=== PATIENT | female | born 1970 | race Caucasian/White ===

== ENCOUNTER 2022-11-16 12:36 | Observation (INO) | payer OTHER ==
--- OUTSIDE RECORDS SUMMARY | 2022-11-16 12:39 | XMS REPORT | Clinical Summary ---
:1970 Author Organization [facility] MD [facility] Address [address] [place] [id number] Care Team Providers Name Role Phone Unavailable Primary Care Provider Unavailable Allergies Not on File Medications Not on file Active Problems Not on file Encounters Date Type Specialty Care Team Description 04/21/2022 Ancillary Procedure Radiology Sharon Huitron MD Cancer 04/21/2022 Ancillary Procedure Radiology Sharon Huitron MD Cancer 04/21/2022 Ancillary Procedure Radiology Sharon Huitron MD Cancer 04/21/2022 Ancillary Procedure Radiology Sharon Huitron MD Cancer after 11/16/2021 Social History Tobacco Use Types Packs/Day Years Used Date Smoking Tobacco: Never Assessed Sex Assigned at Date Recorded Not on file Last Filed Vital Signs Not on file Plan of Treatment Not on file Results Not on fileafter 11/16/2021
--- OUTSIDE RECORDS SUMMARY | 2022-11-16 12:40 | XMS REPORT | Continuity of Care Document ---
:1970 Author Organization [facility] t Address [address] [place] [address] Care Team Providers Name Role Phone Aleta Fajardo MD Primary Care Physician Aleta Fajardo MD Attending Clinician Mj Huitron MD Attending Clinician MJ HUITRON Attending Clinician Unavailable Payers Payer Name Policy Type Policy Number Effective Date Expiration Date S ource Problems Condition Condition Condition Status Onset Resolution Last Treating Co mments Source Name Details Category Date Date Treatment Clinician Date Depression Depression Disease Recurre 2017-07 [facility] with with nce 0- st anxiety anxiety 00:00: Hospita 00 l Chronic Chronic Disease Active Overview: Meth victor hugo left-sided left-sided 12-[address] low back low back 00:00: g of this Hos amanda pain pain 00 note l without without might be sciatica sciatica different from the original. 12/09/2017 x ray ; Minimal Multileve l degenerat opal changes , Dizziness Dizziness Disease Active 2015-07 Overview: [facility] 2-[address] 00:00: g of this Hospita 00 note l might be different from the original. Fu w ENt Suzi' Suzi' Disease Recurre 2015-07 Ygvie w: Methodi s s nce 2-[address] thyroiditi thyroiditi 00:00: g of this Hospita s s 00 note l might be different from the original. 05/13 TFT wnl ,BX was benign Nevus of Nevus of Disease Active 2015-07 Overview: Me thodi multiple multiple 2-[address] sites sites 00:00: g of this Hospita 00 note l might be different from the original. Fu w derm Vitamin D Vitamin D Disease Active Overview: [facility] deficiency deficiency 01-29 [facility] 00:00: g of this Hospita 00 note l might be different from the original. 02/06 V d 27 07/09 V d 25 04/10 V d 42 04/11 v d 35 08/16 OSH V D 40 History of History of Disease Active Overview : [facility] skin skin 11-26 [facility] cancer cancer 00:00: g of this Hospita 00 note l might be different from the original. BCC Upper chest Routine Routine Disease Active Overview: Meth victor hugo gynecologi gynecologi 11-26 [facility] raji raji 00:00: g of this Hospita examinatio examinatio 00 note l n n might be different from the original. WW w obgyn HLD HLD Disease Recurre Overview: Metho di (hyperlipi (hyperlipi nce 11-26 [facility] demia) demia) 00:00: g of this Hospita 00 note l might be different from the original. 09/15 ASCVD 1.4 % 10/14 CACS Zero Insomnia Insomnia Disease Recurre Meth victor hugo nce st Hospita l Allergies, Adverse Reactions, Alerts Allergy Allergy Status Severity Reaction(s) Onset Inactive Treating Comm ents Source Name Type Date Date Clinician Sulfa Propensi Active [facility] (Sulfona ty to 11-26 mide adverse 00:00: Hospita Antibiot reaction 00 l ics) s to drug Family History Family Member Diagnosis Comments Start Date Stop Date Source Natural brother Hypertension [facility] Natural brother Diabetes [facility] Natural father Diabetes [facility] Maternal grandfather Heart disease [facility]aternal grandmother Cancer [facility] Natural mother Cancer [facility] Paternal grandfather Cancer [facility] Paternal grandmother Cancer [facility] Social History Social Habit Start Date Stop Date Quantity Comments Source Gender identity [facility] Sexual orientation [facility] History of Social 2022-09-14 2022-09-14 [facility] function 00:00:00 00:00:00 Hospital Alcohol intake 2022-09-14 2022-09-14 Current drinker [facility] 00:00:00 00:00:00 of alcohol Hospital (finding) Tobacco use and 2022-09-09 2022-09-09 Smokeless [facility] exposure 00:00:00 00:00:00 tobacco non-user Hospital Alcohol Comment 2015-11-27 2015-11-27 social [facility] 00:00:00 00:00:00 Hospital Sex Assigned At [birth year] [facility] 00:00:00 00:00:00 Hospital Smoking Status Start Date Stop Date Source Never smoked tobacco [facility] Medications Ordered Filled Start Stop Current Ordering Indication Dosage Frequency Signature Comments Components Source Medication Medication Date Date Medication? Clinician (SIG) Name Name multivitami 2022- No 1{tbl} QD Take 1 M ethodi n with 09-[address] [facility] 14:19: 00:00 mouth Hospita tablet 29 :00 daily. l CHOLECALCIF Yes Take by Met hodakin YUKO, 09-[address] VITAMIN D3, 14:08: TAB DAILY H ospita (VITAMIN D3 55 l ORAL) NON Yes ProbioticP [facility] FORMULARY 09-[address] 14:08: fiberB-12 Hospita 55 l traZODone 2022- No [id number] 50mg QD Take 1 [facility] (DESYREL) 09-14 tablet (50 st 50 MG 00:00: 00:00 mg total) Hospit a tablet 00 :00 by mouth l nightly. Immunizations Ordered Immunization Filled Immunization Date Status Commen ts Source Name Name FLUCELVAX QUAD PF 2021-09-[address] 00:00:00 Hospital FLUCELVAX QUAD PF 2020-05-[address] 00:00:00 Hospital FLUBLOK QUAD PF 2019-04-25 Completed [facility] 00:00:00 Hospital FLUZONE QUAD PF 2018-04-25 Completed [facility] 00:00:00 Hospital FLUZONE QUAD PF 2017-04-20 Completed [facility] 00:00:00 Hospital Tdap 2017-04-20 Completed [facility] 00:00:00 Hospital FLUZONE QUAD PF 2016-06-25 Completed [facility] 00:00:00 Hospital Vital Signs Vital Name Observation Time Observation Value Comments Source Systolic blood 2022-09-09 20:07:00 118 mm[Hg] Method [facility] pressure Diastolic blood 2022-09-09 20:07:00 82 mm[Hg] [facility] pressure Heart rate 2022-09-09 20:07:00 72 /min [facility] Body temperature 2022-09-09 20:07:00 36.67 Shania [facility] Respiratory rate 2022-09-09 20:07:00 20 /min [facility] Body height 2022-09-09 20:07:00 170.2 cm [facility] Body weight 2022-09-09 20:07:00 74.027 kg [facility] BMI 2022-09-09 20:07:00 25.56 kg/m2 [facility] Oxygen saturation in 2022-09-09 20:07:00 98 /min [facility] Arterial blood by Pulse oximetry Procedures Procedure Date / Time Performing Clinician Source Performed CT CARDIAC CALCIUM SCORE 2022-09-28 19:41:00 Aleta Fajardo [facility] MAMMO BREAST SCREEN 2022-09-28 19:38:09 [facility] TOMOSYNTHESIS BILATERAL Plan of Care Planned Activity Planned Date Details Comments Source Future Scheduled 2022-10-29 SHINGLES VACCINES (1 [facility] Test 22:52:55 of 2) [code = SHINGLES VACCINES (1 of 2)] Future Scheduled 2022-10-29 INFLUENZA VACCINE [facility] Test 22:52:55 [code = INFLUENZA VACCINE] Future Scheduled 2022-10-29 BREAST CANCER [facility] Test 22:52:55 SCREENING [code = BREAST CANCER SCREENING] Future Scheduled 2022-10-29 COLONOSCOPY SCREENING [facility] Test 22:52:55 [code = COLONOSCOPY SCREENING] Encounters Start End Encounter Admission Attending Care Care Encounter Source Date/Time Date/Time Type Type Clinicians Facility Department ID 2022-09-29 2022-09-29 [facility], 1.2.840.1 [id number] Method 08:11:15 23:59:00 Encounter Aleta [id number] 3.430.2.7 Hospit a .3.625911 l .8 2022-09-29 2022-09-29 [facility], 1.2.840.1 [id number] [facility] 08:10:54 08:10:54 Encounter Branka [id number] 3.430.2.7 Hospit a .3.838082 l .8 2022-09-29 2022-09-29 [facility], 1.2.840.1 [id number] Methodi 08:10:33 08:10:33 Encounter Branka [id number] 3.430.2.7 Hospit a .3.831360 l .8 2022-09-29 2022-09-29 [facility], 1.2.840.1 [id number] Methodi 08:10:15 08:10:15 Encounter Branka [id number] 3.430.2.7 Hospit a .3.138358 l .8 2022-09-29 2022-09-29 [facility], [facility] [id number] [place] 00:00:00 00:00:00 BRANKA [address] 2022-09-29 2022-09-29 Outpatient [facility], [facility] [id number] [place] 00:00:00 00:00:00 BRANKA [address] 2022-09-29 2022-09-29 [facility], [facility] [id number] [place] 00:00:00 00:00:00 BRANKA [address] 2022-09-29 2022-09-29 [facility], [facility] [id number] [place] 00:00:00 00:00:00 BRANKA [address] 2022-09-29 2022-09-29 [facility], 1.2.840.1 [id number] Methodi 00:00:00 00:00:00 Only Branka [id number] 3.430.2.7 Hospit a .3.166623 l .8 2022-09-28 2022-09-28 Outpatient [facility], [facility] [id number] [place] 00:00:00 00:00:00 BRANKA [address] 2022-09-28 2022-09-28 [facility] [id number] [place] 00:00:00 00:00:00 ALETA [address] 2022-09-09 2022-09-09 Office Scotty, 1.2.840.1 [id number] Methodi 14:00:00 14:36:50 Visit Aleta [id number] 2 3.430.2.7 Hospit a .3.742203 l .8 2022-09-09 2022-09-09 Outpatient [facility] [id number] [place] 00:00:00 00:00:[address] 2022-04-21 2022-04-21 Ancillary Tomy, 1.2.840.1 [id number] [facility] 23:45:00 23:50:00 Procedure Abenaa 61761.1.1 it y of 3.412.2.7 [place] .3.974924 MD Reddy [facility] 2022-04-21 2022-04-21 Ancillary Tomy, 1.2.840.1 [id number] [facility] 23:40:00 23:45:00 Procedure Abenaa 33957.1.1 it y of 3.412.2.7 [place] .3.975753 MD Reddy [facility] 2022-04-21 2022-04-21 Ancillary Tomy, 1.2.840.1 [id number] [facility] 23:35:00 23:40:00 Procedure Abenaa 87182.1.1 it y of 3.412.2.7 [place] .3.268472 MD Reddy [facility] 2022-04-21 2022-04-21 Ancillary Tomy, 1.2.840.1 [id number] Univers 23:30:00 23:35:00 Procedure Abenaa 30194.1.1 it y of 3.412.2.7 [place] .3.367712 MD Reddy [facility] 2022-04-21 2022-04-21 Outpatient ROSIO HUITRON MDA [facility] [id number] 23:27:50 23:27:50 ABENAA Horacio o n 2022-04-21 2022-04-21 Outpatient ROSIO HUITRON [facility] [id number] 23:27:48 23:27:48 MJ Leonard o n 2022-04-21 2022-04-21 Outpatient ROSIO HUITRON, MDA MDA [id number] 23:27:46 23:27:46 MJ cowan n 2022-04-21 2022-04-21 Outpatient ROSIO HUITRON MDA MDA [id number] 23:27:42 23:27:42 MJ cedillo 2021-09-14 2021-09-14 Outpatient [facility], [facility] [id number] [place] 00:00:00 00:00:00 ALETA [address] 2020-05-13 2020-05-13 Outpatient [facility] [id number] [place] 00:00:00 00:00:00 ALETA [address] 2020-05-06 2020-05-06 Outpatient [facility] [id number] [place] 00:00:00 00:00:[address] 2019-11-27 2019-11-27 Outpatient [facility] [id number] [place] 00:00:00 00:00:00 ALETA [address] Results This patient has no known results.
[2022-11-16 14:45] VITALS: BMI 25.9
[2022-11-16] MEDS ORDERED: ONDANSETRON 4 MG/2 ML VIAL IV PRN (14:47)
--- NOTE | 2022-11-16 15:00 | P.HP ---
Certification for Inpatient Patient admitted to: Inpatient With expected LOS: >2 Midnights Patient will require the following post-hospital care: None Practitioner: I am a practitioner with admitting privileges, knowledge of patient current condition, hospital course, and medical plan of care. Services: Services provided to patient in accordance with Admission requirements found in Title 42 Section 412.3 of the Code of Federal Regulations Patient History Date of Service: 11/16/22 Reason for admission: TIA History of Present Illness: Patient is a 52-year-old female with a past medical history significant for hypertension who presented from an outside ER facility for complaint of a suspected stroke. Patient reported that this morning she started having left arm pain and later left arm\facial numbness. Patient reported associated signs and symptoms of dizziness, near syncope, nausea, generalized weakness, unsteady gait and headache. Patient denies any other signs and symptoms. Symptoms are aggravated or relieved by nothing. Patient presented to an outside ER facility--[facility] where patient had a negative CTA head\neck and CT brain. Patient was given TNK infusion. Patient was referred to the hospital for higher level of care. Patient was accepted by neurology who recommended admission to the hospital. Allergies Sulfa (Sulfonamide Antibiotics) Allergy (Verified 11/16/22 15:09) Hives Home Medications: NK [No Home Meds] 11/16/22 - Past Medical/Surgical History -: HTN -: hysterectomy -: Tummy Tuck Surgery - Family History Father -: Heart disease, Hypertension, Diabetes, Other (see notes) (Hyperlipidemia) Mother -: Cancer - Social History Smoking Status: Former smoker Alcohol use: Yes CD- Drugs: Yes Caffeine use: No Place of Residence: Home Review of Systems General: Weakness Eyes: Unremarkable ENT: Unremarkable Respiratory: Unremarkable Cardiovascular: Unremarkable Gastrointestinal: Nausea Genitourinary: Unremarkable Musculoskeletal: Arm Pain Integumentary: Unremarkable Neurological: Weakness, Numbness, Other (Headache, near syncope, poor gait) Lymphatics: Unremarkable Physical Examination - Physical Exam General: Alert, In no apparent distress, Oriented x3, Cooperative HEENT: Atraumatic, PERRLA, Mucous membr. moist/pink, EOMI, Sclerae nonicteric Neck: Supple, 2+ carotid pulse no bruit, No LAD, Without JVD or thyroid abnormality Respiratory: Clear to auscultation bilaterally, Normal air movement Cardiovascular: No edema, Regular rate/rhythm, Normal S1 S2 Capillary refill: <2 Seconds Gastrointestinal: Normal bowel sounds, Soft and benign, No tenderness Musculoskeletal: No tenderness Integumentary: No rashes, No significant lesion Neurological: Normal speech, Normal strength at 5/5 x4 extr, Normal tone, Normal affect, Abnormal gait Lymphatics: No axilla or inguinal lymphadenopathy Assessment and Plan - Plan -- TIA. CTA head\neck, CT brain and MRI brain unremarkable for any acute findings. Neurologist on board. Status post TNK infusion. Continue folic acid and statin. Echocardiogram pending to assess to rule out possible cardiac cause of TIA. We will await further recommendation from neurologist. --Generalized weakness\abnormality of gait and mobility. Likely secondary to TIA. PT eval and treat. Patient reports improvement in weakness. Continue supportive care. --Hypertension. Patient reports medication noncompliance. We will allow for permissive hypertension. We will continue to monitor blood pressure levels. --CKD 2. Baseline functions unknown. Continue p.o. hydration. We will continue to monitor renal functions. --Cannabis use disorder. Patient reports use of cannabis. Patient counseled on drug cessation.. -- Headache. Tylenol as needed. --DVT prophylaxis with SCDs. Discharge Plan: Home Plan to discharge in: Greater than 2 days - Advance Directives Does patient have a Living Will: No Does patient have a Durable POA for Healthcare: No - Code Status/Comfort Care Code Status Assessed: Yes Physician Review: Patient Assessed, Agree with Above Assessment and Plan Critical Care: No
[2022-11-16] MEDS ORDERED: LORazepam 2 MG/ML VIAL IV ONE (15:20)
[2022-11-16 15:38] LABS: Hematocrit 41.7 % (36.0-45.0); Lymphocytes % 14.2 % (15.3-44.8); MCV 88.5 fL (80-100); MPV 7.4 fL (7.6-11.3); RBC Red Blood Cell Count 4.71 M/uL (3.86-4.86)
[2022-11-16 15:39] LABS: Protime INR 1.03
[2022-11-16 15:49] LABS: Albumin 3.9 g/dL (3.4-5.0); Bilirubin Total 0.4 mg/dL (0.2-1.0); Protein, Total 6.4 g/dL (6.4-8.2); Troponin High Sensitivity 6.5 pg/mL (<58.9)
[2022-11-16 16:06] LABS: Magnesium 2.2 mg/dL (1.6-2.4); NT PRO-BNP 51 pg/mL (<125)
[2022-11-16 16:10] LABS: Phosphorus > 9.0 mg/dL (2.5-4.9)
[2022-11-16] MEDS: FOLIC ACID 1 MG TABLET PO SCH (16:44)
--- NOTE | 2022-11-16 18:26 | RAD REPORT ---
EXAM DESCRIPTION: MRI - Brain Wo Cont - 11/16/2022 6:14 pm CLINICAL HISTORY: concern for CVA s/p TNK Headache, drowsiness, CVA symptomology COMPARISON: No comparisons TECHNIQUE: Multi-sequence, multiplanar MR imaging of the brain was performed without contrast. FINDINGS: No intracranial hemorrhage, hydrocephalus or extra-axial fluid collections. No edema or sh ift of midline structures. No findings to suspect brain mass. DWI is negative for acute CVA. Midline structures are normally formed. Mastoid air cells and paranasal sinuses are clear. IMPRESSION: No acute or concerning intracranial abnormalities.
[2022-11-16 18:41] VITALS: O2SAT 99
[2022-11-16] MEDS: ATORVASTATIN 40 MG TAB PO SCH (20:17)
[2022-11-16] MEDS ORDERED: ZOLPIDEM TARTRATE 5 MG TABLET PO PRN (20:29)
[2022-11-17 05:01] LABS: Absolute Lymphocytes (CBC) 1.6 K/uL (0.7-4.9); Hematocrit 39.7 % (36.0-45.0); Lymphocytes % 35.2 % (15.3-44.8); MCV 88.6 fL (80-100); MPV 7.2 fL (7.6-11.3); RBC Red Blood Cell Count 4.49 M/uL (3.86-4.86)
[2022-11-17 05:20] LABS: Albumin 3.3 g/dL (3.4-5.0); Bilirubin Total 0.4 mg/dL (0.2-1.0); Potassium 3.9 mEq/L (3.5-5.1); Protein, Total 6.1 g/dL (6.4-8.2)
[2022-11-17 06:50] VITALS: TEMP 97
[2022-11-17] MEDS: FOLIC ACID 1 MG TABLET PO SCH ×2 (07:11→16:31)
[2022-11-17] MEDS ORDERED: ENOXAPARIN 40 MG/0.4 ML SQ SCH (09:00)
[2022-11-17] MEDS ORDERED: POTASSIUM CL SA 10 MEQ TAB PO ONE (09:00)
--- NOTE | 2022-11-17 12:45 | ECHO ---
HEIGHT: 5 ft 7 in WEIGHT: 165 lb 8 oz DATE OF STUDY: 11/17/[address]: Marleny Hendrickson 2-DIMENSIONAL: YES M.MODE: YES DOPPLER: YES COLOR FLOW: YES TDS: NO PORTABLE: YES DEFINITY: NO BUBBLE STUDY: NO DIAGNOSIS: NUMBNESS CARDIAC HISTORY: CATHERIZATION: NO SURGERY: NO PROSTHETIC VALVE: NO PACEMAKER: NO MEASUREMENTS (cm) DIASTOLIC (NORMALS) SYSTOLIC (NORMALS) IVSd 0.9 (0.6-1.2) LA Diam 3.2 (1.9-4.0) LVEF 68% LVIDd 4.6 (3.5-5.7) LVIDs 2.9 (2.0-3.5) %FS 38% LVPWd 0.9 (0.6-1.2) Ao Diam 2.9 (2.0-3.7) 2 DIMENSIONAL ASSESSMENT: RIGHT ATRIUM: NORMAL LEFT ATRIUM: NORMAL RIGHT VENTRICLE: NORMAL LEFT VENTRICLE: NORMAL TRICUSPID VALVE: NORMAL MITRAL VALVE: NORMAL PULMONIC VALVE: NORMAL AORTIC VALVE: NORMAL PERICARDIAL EFFUSION: NONE AORTIC ROOT: NORMAL LEFT VENTRICULAR WALL MOTION: NORMAL. DOPPLER/COLOR FLOW: NORMAL. COMMENTS: 1. NORMAL 2D ECHO WITH DOPPLER 2. NO WALL MOTION ABNORMALITY 3. NO EFFUSION TECHNOLOGIST: SOLOMON ESQUEDA
--- NOTE | 2022-11-17 14:09 | RAD REPORT ---
EXAM DESCRIPTION: CT - Head Brain Wo Cont - 11/17/2022 2:02 pm CLINICAL HISTORY: R/O hemorrhage COMPARISON: Brain Wo Cont dated 11/16/2022 TECHNIQUE: All CT scans are performed using dose optimization technique as appropriate and may inclu de automated exposure control or mA/KV adjustment according to patient size. FINDINGS: No intracranial hemorrhage, hydrocephalus or extra-axial fluid collection.No areas of brai n edema or evidence of midline shift. The paranasal sinuses and mastoids are clear. The calvarium is intact. IMPRESSION: No acute intracranial abnormality.
--- NOTE | 2022-11-17 15:44 | P.DS ---
Admission Date: 11/16/22 Discharge Date: 11/17/22 Disposition: ROUTINE DISCHARGE Discharge Condition: GOOD Reason for Admission: TIA Consultations: 1. Neurology Hospital Course: DIAGNOSES: # Left-Sided Sensory Deficits - concern for Cerebrovascular Accident s/p Tenecteplase - resolved # Hypertension # Left Thyroid Nodule (2 cm) # Substance Use Disorder - Cannabis HOSPITAL COURSE: Ms. Elvi Couch is a 52 year old female with a past medical history significant for hypertension who was admitted to the [facility] from [facility] on 11/16/2022 for concern of a cerberovascular accident. She was admitted to the Medicine service. Her outside CT head reported reads, "no acute intracranial abnormality." Her outside CT head/neck angiogram report reads, "1. Normal head and neck CTA. 2. 2 cm left thyroid nodule for which follow-up ultrasound is recommended." She was given tenecteplase around 13:05 on 11/16/2022 at [facility] prior to arrival. Her MRI brain revealed, "no acute or concerning intracranial abnormalities." Her transthoracic echocardiogram revealed, "1. normal 2D echo with doppler 2. no wall motion abnormality 3. no effusion." Neurology was consulted and she was evaluated by Dr. Duarte. She was observed with serial NIHSS scores and did well. Her 24-hour post TNK CT head revealed, "no acute intracranial abnormality." Dr. Duarte has cleared her for discharge home with aspirin, atorvastatin, clopidogrel, and folic acid. Incidentally, she was noted to have a thyroid nodule. Her thyroid function tests were within normal limits. She was counseled on this finding and advised to schedule follow-up ultrasound with her PCP. She verbalized understanding and agreed to make this appointment. On 11/17/2022, She was seen on rounds and deemed medically stable for discharge. She was discharged with instructions to schedule follow-up appointments with her PCP (Dr. Fajardo) and with Neurology (Dr. Duarte). She was provided prescriptions for atorvastatin and clopidogrel. She was given the opportunity to ask questions and reported no further questions. Furthermore, all questions were answered to the best of my ability. A copy of this discharge summary will be sent to the above providers to facilitate continuity of care. Today, I personally spent 25 minutes on her case, of which greater than 50% of the time was spent in patient education, counseling, and coordination of care as described above. NIH Stroke Scale 1a. Level of consciousness: 0 - Alert; keenly responsive 1b. LOC questions: 0 - Both questions right 1c. LOC commands: 0 - Performs both tasks 2. Best Gaze: 0 - Normal 3. Visual: 0 - No visual loss 4. Facial Palsy: 0 - Normal symmetry 5a. Motor left arm: 0 - No drift for 10 seconds 5b. Motor right arm: 0 - No drift for 10 seconds 6a. Motor left le - No drift for 5 seconds 6b. Motor right le - No drift for 5 seconds 7. Limb ataxia: 0 - No ataxia 8. Sensory: 0 - Normal; no sensory loss 9. Best Language: 0 - Normal; no aphasia 10. Dysarthria: 0 - Normal 11. Extinction and Inattention: 0 - No abnormality 12. Distal motor function: 0 - No abnormality Total Score: 0 Vital Signs/Physical Exam: Temp Pulse Resp BP Pulse Ox 97.0 F 56 19 80/36 L 96 11/17/22 12:00 11/17/22 14:00 11/17/22 13:00 11/17/22 14:00 11/17/22 13:00 General: Alert, In no apparent distress, Oriented x3 HEENT: Atraumatic, PERRLA, Mucous membr. moist/pink, EOMI, Sclerae nonicteric Neck: JVD not distended Respiratory: Clear to auscultation bilaterally, Normal air movement Cardiovascular: No edema, Regular rate/rhythm, Normal S1 S2, No gallops, No rubs, No murmurs Gastrointestinal: Normal bowel sounds, Soft and benign, Non-distended, No tenderness, No rebound, No guarding Musculoskeletal: No clubbing Integumentary: No rashes Neurological: Normal speech, Normal strength at 5/5 x4 extr, Normal tone, S ensation intact, Cranial nerves 3-12 intact, Normal reflexes 2+, Normal affect Laboratory Data at Discharge: WBC 4.40 thou/uL (4.3-10.9) 11/17/22 04:30 Hgb 13.4 g/dL (12.0-15.0) 11/17/22 04:30 Hct 39.7 % (36.0-45.0) 11/17/22 04:30 Plt Count 232 thou/uL (152-406) 11/17/22 04:30 PT 11.3 SECONDS (9.5-12.5) 11/16/22 13:05 INR 1.03 11/16/22 13:05 Sodium 138 mEq/L (136-145) 11/17/22 04:30 Potassium 3.9 mEq/L (3.5-5.1) 11/17/22 04:30 BUN 24 mg/dL (7-18) H 11/17/22 04:30 Creatinine 0.92 mg/dL (0.55-1.02) 11/17/22 04:30 Glucose 100 mg/dL (74-106) 11/17/22 04:30 Phosphorus 2.5 mg/dL (2.5-4.9) 11/16/22 17:03 Magnesium 2.2 mg/dL (1.6-2.4) 11/16/22 13:05 Total Bilirubin 0.4 mg/dL (0.2-1.0) 11/17/22 04:30 AST 24 U/L (15-37) 11/17/22 04:30 ALT 24 U/L (13-56) 11/17/22 04:30 Alkaline Phosphatase 81 U/L (45-117) 11/17/22 04:30 Triglycerides 95 mg/dL (<150) 11/17/22 04:30 Cholesterol 226 mg/dL (<200) H 11/17/22 04:30 HDL Cholesterol 58 mg/dL (40-60) 11/17/22 04:30 Cholesterol/HDL Ratio 3.90 11/17/22 04:30 Home Medications: Aspirin [Adult Low Dose Aspirin EC] 81 mg PO DAILY #30 11/17/22 Atorvastatin Calcium [Lipitor] 40 mg PO BEDTIME #30 tab 11/17/22 Clopidogrel Bisulfate [Plavix] 75 mg PO DAILY #30 tab 11/17/22 Folic Acid 1 mg PO DAILY #30 11/17/22 New Medications: Aspirin [Adult Low Dose Aspirin EC] 81 mg PO DAILY #30 Folic Acid 1 mg PO DAILY #30 Atorvastatin Calcium [Lipitor] 40 mg PO BEDTIME #30 tab Clopidogrel Bisulfate [Plavix] 75 mg PO DAILY #30 tab Physician Discharge Instructions: 1. Please call and schedule a follow-up appointment with your PCP (Dr. Fajardo) in 3-5 days - Please have your PCP order a thyroid ultrasound to evaluate your thyroid nodule 2. Please call and schedule a follow-up appointment with Neurology (Dr. Duarte) in 5-7 days - Please have him provide you with your medication refills and/or dose adjustments Diet: AHA Activity: Ad petty Followup: Bebe Fajardo MD [OUTSIDE PHYSICIAN] - Zohaib Duarte MD [ASSOCIATE-ACTIVE - CAN ADMIT] - Time spent managing pt's care (in minutes): 25
[2022-11-17] MEDS: ATORVASTATIN 40 MG TAB PO SCH (16:31)
[2022-11-17 17:21] VITALS: BP 116/68
--- NOTE | 2022-11-18 11:37 | EKG ---
Test Date: 2022-11-16 Test Time: 16:58:50 Communications Coordinator: YULIYA MEASUREMENT RESULTS: Intervals: Rate: 66 MI: 202 QRSD: 70 QT: 418 QTc: 438 [place]: P: -2 MI: 202 QRS: -7 T: 17 INTERPRETIVE STATEMENTS: Normal sinus rhythm Low voltage QRS Borderline ECG Compared to ECG 11/16/2022 16:58:19 Accelerated junctional rhythm no longer present Electronically Signed On 11-18-22 11:36:45 CDT by Bruno Wills
== END 2022-11-17 16:55 | disposition home or self-care (01) ==
LOC: 3RD-ICU 12:36
PROVIDERS: ADMIT Internal Medicine; ATTEND Internal Medicine
DX: R44.8 Other symptoms and signs involving general sensations and perceptions (principal); R55 Syncope and collapse; R53.1 Weakness; I10 Essential (primary) hypertension; N18.2 Chronic kidney disease, stage 2 (mild); R51.9 Headache, unspecified; F12.90 Cannabis use, unspecified, uncomplicated; E04.1 Nontoxic single thyroid nodule
CPT/HCPCS: 36415; 70450; 70551; 80053; 80061; 83036; 83735; 83880; 84100; 84439; 84443; 84484; 84702; 85025; 85610; 93005; 93306; 97161; G0378; G0379